=== PATIENT | female | born 1955 | race Asian ===

== ENCOUNTER → 2016-07-16 | Outpatient (CLI) | payer OTHER ==
--- NOTE | 2016-07-16 13:39 | US ---
Ultrasound Venous Duplex/Doppler Right Leg History: Pain and swelling. Findings: Ultrasound venous duplex and Doppler imaging of the common femoral vein, femoral vein, pop liteal vein, calf veins, greater saphenous vein origin, and contralateral common femoral vein demonst rates positive deep venous thromboses occluding one of the posterior tibial veins in the right calf. The rest of the veins including the popliteal, femoral, and common femoral veins appear patent. Impression: Positive deep venous thromboses in the right calf posterior tibial vein without extensio n into the femoral vein. Findings and recommendations discussed with Navneet Slaughter PA-C at the 1335 hour, today. Final report concurs with initial preliminary interpretation. A test result has been communicated to a licensed care provider and documented in [employer], 1:37:54 PM , 07/16/2016, [employer] Message ID [id number].
== END ==
LOC: FIMAGING 12:30
PROVIDERS: ATTEND Nurse Practitioner Family
DX: I82.4Z1 Acute embolism and thrombosis of unspecified deep veins of right distal lower extremity (principal)

== ENCOUNTER → 2017-04-14 | Outpatient (CLI) | payer OTHER | LOC: FIMAGING 13:04 | PROVIDERS: ATTEND Family Medicine | DX: Z12.31 Encounter for screening mammogram for malignant neoplasm of breast (principal); Z80.3 Family history of malignant neoplasm of breast | CPT/HCPCS: G0202 ==